=== PATIENT | female | born 2000 | race Caucasian/White ===

== ENCOUNTER 2019-11-10 06:20 | Emergency (ER) | payer OTHER ==
[~2019-11-10] VITALS: Ht 167 cm; Wt 56.8 kg
--- OUTSIDE RECORDS SUMMARY | 2019-11-10 06:27 | XMS REPORT | Continuity of Care Document ---
Author Organization Unknown Address Unknown Phone Unavailable Allergies There is no data. Medications There is no data. Problems There is no data. Procedures There is no data. Results There is no data. Encounters ACCT No. Visit Date/Time Discharge Status Pt. Type Provider Facility Loc./Unit Complaint [id number] 11/10/2019 06:23:[address] Emergency MARIO MCGEE, PASCUAL [facility] ER PELVIC PAIN
--- NOTE | 2019-11-10 06:49 | ED GU-Female ---
General Chief Complaint: Abdominal/GI Problems Stated Complaint: PELVIC PAIN Nursing Triage Note: Pt to [facility] 6 with c/o suprapubic pain that started this am. 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 Pt states her previous menstrual cycles have been normal for her. Pt denies any urinay symptoms, states she had nausea on arrival, but no episodes of vomiting. Denies fever/chills. Nursing Sepsis Screen: No Definite Risk Source: patient Exam Limitations: no limitations (BROOKLYN SALAZAR MED STUDENT) History of Present Illness Date Seen by Provider: Nov 10, 2019 Time Seen by Provider: 06:25 Initial Comments This 18 year old female presents to the ED this morning complaining of pelvic pain that started 1.5 hours ago and woke her from her sleep. She states that she has 10/10 cramping pain in her lower abdomen that is sometimes sharp. She also felt nauseous, shakey and like she was going to pass out. She states she has had pain with her periods since she began menstruating, but it is worse than normal this morning. She states her pain is also radiating to her thighs this morning, which does not normally happen. She tried ibuprofen about 1 hour ago and took a bath, but neither helped like they usually do. She states that her cycles have been normal, but when showing her period log, there have been a few months where she has missed a period. LMP was October 01-. She stopped taking control pills in June because they made her nauseous. She states that she is sexually active with her boyfriend of 1.5 years and there is a chance she could be . She states she took a test yesterday which was negative. She reports that she was hospitalized last January for PID caused by chlamydia, but experienced mainly vaginal symptoms at that time. She denies any urinary symptoms, abnormal discharge, diarrhea or vomiting. She admits to pain with intercourse in the past, but has not experienced this lately. Severity/Quality: moderate Location: RLQ, LLQ, suprapubic Radiation: other (bilateral inner thighs) Activities at Onset: sleep Sexual [place] History: single partner Associated Symptoms: abdominal pain; No dysuria; nausea/vomiting; No urinary frequency (BROOKLYN SALAZAR MED STUDENT) Allergies and Home Medications Allergies Coded Allergies: latex (Verified Allergy, Unknown, 11/10/19) Patient Home Medication List Home Medication List Reviewed: Yes (PASCUAL MARTIN MD) Review of Systems Review of Systems Constitutional: no symptoms reported; No chills, No fever EENTM: no symptoms reported Respiratory: no symptoms reported Cardiovascular: No chest pain, No edema Gastrointestinal: see HPI Genitourinary: see HPI Musculoskeletal: no symptoms reported Skin: no symptoms reported Psychiatric/Neurological: No Symptoms Reported Endocrine: No Symptoms Reported Hematologic/Lymphatic: No Symptoms Reported (BROOKLYN SALAZAR MED STUDENT) Past Utffwkg-Wpbryi-Otgxkq Hx Patient Social History Alcohol Use: Rarely Uses Recreational Drug Use: No Smoking Status: Never a Smoker 2nd Hand Smoke Exposure: No Recent Foreign Travel: No Contact w/Someone Who Travel: No Recent Infectious Disease Expo: No Recent Hopitalizations: No (BROOKLYN SALAZAR MED STUDENT) Past Medical History Surgeries: No Respiratory: No Cardiac: Yes Hypotension Neurological: No Genitourinary: Yes (PID) Gastrointestinal: No Musculoskeletal: No Endocrine: No HEENT: No Cancer: No Psychosocial: No Integumentary: No Blood Disorders: No (BROOKLYN SALAZAR MED STUDENT) Physical Exam Vital Signs Vital Signs - First Documented 11/10/19 06:26 Temp 36.7 Pulse 86 Resp 20 B/P (MAP) 86/74 (78) Pulse Ox 97 O2 Delivery Room Air (PASCUAL MARTIN MD) Vital Signs Capillary Refill : Less Than 3 Seconds (BROOKLYN SALAZAR MED STUDENT) Height, Weight, BMI Height: '" Weight: lbs. oz. kg; 20.00 BMI Method: General Appearance: WD/WN, no apparent distress HEENT: PERRL/EOMI; No scleral icterus (R), No scleral icterus (L) Neck: normal inspection Cardiovascular: regular rate, rhythm, no edema, no murmur, other (hypotensive) Respiratory: lungs clear, normal breath sounds, no respiratory distress Gastrointestinal: normal bowel sounds, soft; No distended, No guarding; tenderness (mild in LLQ, RLQ and suprapubic areas); No mass Extremities: normal inspection, no pedal edema, no calf tenderness, normal capillary refill, other (skin peeling in bilateral LE, patient attributes to sunburn a few weeks prior) Neurologic/Psychiatric: no motor/sensory deficits, alert, normal mood/affect, oriented x 3 Skin: normal color, warm/dry (BROOKLYN SALAZAR MED STUDENT) Progress/Results/Core Measures Suspected Sepsis Recent Fever Within 48 Hours: No Infection Criteria Present: None New/Unexplained Altered Menta: No Sepsis Screen: No Definite Risk SIRS Temperature: Pulse: 86 Respiratory Rate: 20 Laboratory Tests 11/10/19 07:20: White Blood Count 6.5 Blood Pressure 86 /74 Mean: 78 Laboratory Tests 11/10/19 07:20: Platelet Count 226 (BROOKLYN SALAZAR MED STUDENT) Results/Orders Lab Results Laboratory Tests Test 11/10/19 06:55 11/10/19 07:20 Range/Units Urine Color YELLOW Urine Clarity CLEAR Urine pH 6.5 5-9 Urine Specific [place] 1.020 1.016-1.022 Urine Protein NEGATIVE NEGATIVE Urine Glucose (UA) NEGATIVE NEGATIVE Urine Ketones NEGATIVE NEGATIVE Urine Nitrite NEGATIVE NEGATIVE Urine Bilirubin NEGATIVE NEGATIVE Urine Urobilinogen 0.2 < = 1.0 MG/DL Urine Leukocyte Esterase NEGATIVE NEGATIVE Urine RBC (Auto) NEGATIVE NEGATIVE Urine RBC NONE /HPF Urine WBC NONE /HPF Urine Squamous Epithelial Cells 2- /HPF Urine Crystals NONE /LPF Urine Bacteria NEGATIVE /HPF Urine Casts NONE /LPF Urine Mucus NEGATIVE /LPF Urine Culture Indicated NO White Blood Count 6.5 4.3-11.0 10^3/uL Red Blood Count 4.69 4.35-5.85 10^6/uL Hemoglobin 13.8 11.5-16.0 G/DL Hematocrit 39 35-52 % Mean Corpuscular Volume 83 80-99 FL Mean Corpuscular Hemoglobin 29 25-34 PG Mean Corpuscular Hemoglobin Concent 35 32-36 G/DL Red Cell Distribution Width 12.6 10.0-14.5 % Platelet Count 226 130-400 10^3/uL Mean Platelet Volume 10.2 7.4-10.4 FL Neutrophils (%) (Auto) 55 42-75 % Lymphocytes (%) (Auto) 35 12-44 % Monocytes (%) (Auto) 8 0-12 % Eosinophils (%) (Auto) 2 0-10 % Basophils (%) (Auto) 0 0-10 % Neutrophils # (Auto) 3.6 1.8-7.8 X 10^3 Lymphocytes # (Auto) 2.3 1.0-4.0 X 10^3 Monocytes # (Auto) 0.5 0.0-1.0 X 10^3 Eosinophils # (Auto) 0.1 0.0-0.3 10^3/uL Basophils # (Auto) 0.0 0.0-0.1 10^3/uL C-Reactive Protein High Sensitivity 0.01 0.00-0.50 MG/DL Serum Test, Qualitative NEGATIVE NEGATIVE (PASCUAL MARTIN MD) My Orders Orders - PASCUAL MARTIN MD Ua Culture If Indicated (11/10/19 06:38) Urine Bedside (11/10/19 06:38) Cbc With Automated Diff (11/10/19 07:26) Hs C Reactive Protein (11/10/19 07:26) Hcg,Qualitative Serum (11/10/19 07:26) (PASCUAL MARTIN MD) Vital Signs/I&O 11/10/19 06:26 Temp 36.7 Pulse 86 Resp 20 B/P (MAP) 86/74 (78) Pulse Ox 97 O2 Delivery Room Air (PASCUAL MARTIN MD) Vital Signs/I&O Capillary Refill : Less Than 3 Seconds (BROOKLYN SALAZAR,MED STUDENT) Blood Pressure Mean: 78 Departure Impression Primary Impression: Pelvic cramping Additional Impression: Menorrhagia Qualified Codes: N92.1 - Excessive and frequent menstruation with irregular cycle Disposition: 01 HOME, SELF-CARE Condition: Improved Departure-Patient Inst. Decision time for Depature: 07:58 (PASCUAL MARTIN MD) Referrals: NO,LOCAL PHYSICIAN (PCP/Family) Primary Care Physician Patient Instructions: Endometriosis, Menstrual Cramps Add. Discharge Instructions: Follow-up with your primary care provider or women's health provider as soon as possible. For cramping and heavy bleeding during. You may continue taking ibuprofen up to 600 mg every 6 hours as needed and Tylenol (acetaminophen) up to 650 mg every 6 hours as needed. Return to care if you have worsening symptoms or if you develop new symptoms such as fever, vaginal discharge, vomiting, etc. All discharge instructions reviewed with patient and/or family. Voiced understanding. Medical student attestation: This patient was personally interviewed and examined by me along with Brooklyn Salazar, MS 4. I agree with MS 4 documentation, history, physical, and assessments except for otherwise noted. Patient complains of pelvic pain and cramping with onset of menstruation this morning. She has been passing clots. She denies fever. She has a history of PID from Chlamydia but states this feels different. She denies any vaginal symptoms which is different from her PID episode. She has no dyspareunia currently. She denies but she is doing nothing to prevent . She and her boyfriend are interested in having children. She is temporarily here and has permanent residence in [place]. Workup was unremarkable. She showed no signs of infection as she was afebrile and had normal CRP and WBC values. 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 Serum test was negative. She reports being told previously that she may have endometriosis. We discussed this a little bit further and she was advised to discuss it again with her primary care team. By the time of my exam patient fell ibuprofen was starting to help. Exam: Gen.: Alert, oriented, no acute distress, thin HEENT: Normocephalic and atraumatic Heart: Regular rate and rhythm without murmur Lungs: Clear to auscultation bilaterally with normal effort Abdomen: Soft, minimally tender in the suprapubic region, nondistended, normal bowel sounds Neuropsych: Alert, oriented, no focal deficits, mood and affect normal Skin: Heavily tattooed, warm and dry with no rashes (PASCUAL MARTIN MD) BROOKLYN SALAZAR,MED STUDENT Nov 10, 2019 06:49 PASCUAL MARTIN MD Nov 10, 2019 08:00
[2019-11-10 07:08] LABS: BILIRUBIN,URINE NEGATIVE (NEGATIVE); CLARITY,URINE CLEAR; COLOR,URINE YELLOW; GLUCOSE, URINE (UA) NEGATIVE (NEGATIVE); KETONES,URINE NEGATIVE (NEGATIVE); LEUKOCYTE ESTERASE ,URINE NEGATIVE (NEGATIVE); NITRITE,URINE NEGATIVE (NEGATIVE); PH,URINE 6.5 (5-9); PROTEIN,URINE NEGATIVE (NEGATIVE)
[2019-11-10 07:26] LABS: BACTERIA,URINE NEGATIVE /HPF
--- NOTE | 2019-11-10 07:29 | NUR ---
PT RESTING IN BED AWAITNG RESULTS
[2019-11-10 07:31] LABS: BASOPHILS % (AUTO) 0 % (0-10); EOSINOPHILS # (AUTO) 0.1 10^3/uL (0.0-0.3); EOSINOPHILS % (AUTO) 2 % (0-10); HEMATOCRIT 39 % (35-52); HEMOGLOBIN 13.8 G/DL (11.5-16.0); LYMPHOCYTES # (AUTO) 2.3 X 10^3 (1.0-4.0); LYMPHOCYTES % (AUTO) 35 % (12-44); MEAN CORPUSCULAR HEMOGLOBIN 29 PG (25-34); MEAN CORPUSCULAR HGB CONC 35 G/DL (32-36); MEAN CORPUSCULAR VOLUME 83 FL (80-99); MEAN PLATELET VOLUME 10.2 FL (7.4-10.4); MONOCYTES # (AUTO) 0.5 X 10^3 (0.0-1.0); MONOCYTES % (AUTO) 8 % (0-12); NEUTROPHILS # (AUTO) 3.6 X 10^3 (1.8-7.8); NEUTROPHILS % (AUTO) 55 % (42-75); PLATELET COUNT 226 10^3/uL (130-400); RED CELL DISTRIBUTION WIDTH 12.6 % (10.0-14.5); WHITE BLOOD COUNT 6.5 10^3/uL (4.3-11.0)
[2019-11-10 08:07] VITALS: BP 99/59
== END 2019-11-10 08:07 | disposition home or self-care (01) ==
LOC: ER 06:23
DX: N92.0 Excessive and frequent menstruation with regular cycle (principal); R10.2 Pelvic and perineal pain; Z91.040 Latex allergy status
CPT/HCPCS: 36415; 81000; 84703; 85025; 86141